=== PATIENT | male | born 1990 | race Caucasian/White ===

== ENCOUNTER 2023-06-15 01:47 | Emergency (ER) | payer SELFPAY ==
[2023-06-15] MEDS ORDERED: Ibuprofen 800 MG TAB ONE (02:19)
== END 2023-06-15 03:12 | disposition home or self-care (01) ==
LOC: MADERS 01:47
DX: B34.9 Viral infection, unspecified (principal); F17.290 Nicotine dependence, other tobacco product, uncomplicated
CPT/HCPCS: 87804; 99283

== ENCOUNTER 2023-07-23 22:03 | Emergency (ER) | payer SELFPAY | END 2023-07-23 23:10 | disposition home or self-care (01) | LOC: MADERS 22:03 | DX: K52.9 Noninfective gastroenteritis and colitis, unspecified (principal); F17.290 Nicotine dependence, other tobacco product, uncomplicated | CPT/HCPCS: 99283 ==

== ENCOUNTER 2023-08-19 05:06 | Emergency (ER) | payer SELFPAY | END 2023-08-19 05:30 | disposition home or self-care (01) | LOC: MADERS 05:06 | DX: R11.2 Nausea with vomiting, unspecified (principal); R19.7 Diarrhea, unspecified; J30.2 Other seasonal allergic rhinitis; F17.290 Nicotine dependence, other tobacco product, uncomplicated | CPT/HCPCS: 99283 ==